=== PATIENT | female | born 1960 | race American Indian/Alaskan Native ===

== ENCOUNTER 2021-01-23 08:17 | Day surgery (SDC) | payer MEDICAID ==
[2021-01-23] MEDS ORDERED: LIDOCAINE PF 100 MG/5 ML (CARDIAC SYRINGE) IV ONE (08:48)
[2021-01-23] MEDS ORDERED: propofoL 200 MG/20 ML VIAL IV ONE ×2 (08:48→10:07)
[2021-01-23] MEDS ORDERED: ONDANSETRON 4 MG/2 ML INJ ONE (08:50)
[2021-01-23] MEDS ORDERED: dexAMETHasone 20 MG/5 ML VIAL ONE (08:50)
[2021-01-23] MEDS ORDERED: fentaNYL 100 MCG/2 ML INJ ONE (08:52)
[2021-01-23] MEDS ORDERED: LACTATED RINGERS 1,000 ML ONE (09:14)
--- NOTE | 2021-01-23 09:19 | Anesthesia Day of Surgery ---
Anesthesia Day of Surgery - Day of Surgery Patient Examined: Yes Patient H&P Reviewed: Yes Patient is NPO: Yes
--- NOTE | 2021-01-23 09:23 | Anesthesia Consultation ---
Anesthesia Consult and Med Hx Date of service: 01/23/21 - Airway Anesthetic Teeth Evaluation: Good, Bridges (Upper left) ROM Head & Neck: Adequate Mental/Hyoid Distance: Adequate Mallampati Class: Class II Intubation Access Assessment: Good - Pre-Operative Health Status ASA Pre-Surgery Classification: ASA3 Proposed Anesthetic Plan: General - Pulmonary Hx Smoking: No Hx Asthma: Yes (USES INHALER WHEN NEEDED) SOB: Yes (Activity limited by knee pain) Hx Sleep Apnea: Yes (CPAP) - Cardiovascular System Hx Hypertension: Yes Hx Coronary Artery Disease: No (Pt reports negative cath [id number] and had ECHO/ECG/NST [id number]) Hx Cardia Arrhythmia: Yes (PVCs on Holter [id number]) - Central Nervous System Hx Neuromuscular Disorder: Yes (Knee arthritis) Hx Psychiatric Problems: No - Endocrine Hx Non-Insulin Dependent Diabetes: No Hx Thyroid Disease: Yes (Nodules) - Hematic Hx Anemia: Yes (TAKES IRON SUPPLEMENTS) - Other Systems Hx Alcohol Use: No Hx Substance Use: No Hx Cancer: No Hx Obesity: Yes
[2021-01-23] MEDS ORDERED: ONDANSETRON 4 MG/2 ML INJ IV PRN (09:30)
[2021-01-23] MEDS ORDERED: HYDROmorphone 1 MG/1 ML INJ IV PRN ×2 (09:30)
[2021-01-23] MEDS ORDERED: LACTATED RINGERS 1,000 ML IV SCH (09:30)
[2021-01-23] MEDS ORDERED: SUCCINYLCHOLINE CHLORIDE 200 MG/10 ML INJ MDV ONE (10:00)
[2021-01-23] MEDS ORDERED: MIDAZOLAM 2 MG/2 ML INJ IV NR (10:00)
[2021-01-23] MEDS ORDERED: CLINDAMYCIN 600 MG/50 mL 600 MG/50 ML BAG IV ONE (10:17)
[2021-01-23] MEDS ORDERED: SODIUM CHLORIDE 0.9% IRRIG SOLN 2000 ML IR ONE (10:45)
--- NOTE | 2021-01-23 10:45 | Operative Report ---
Operative Report Operative Report: Preoperative diagnosis: Dysfunctional uterine bleeding with thickened endometrial lining Postoperative diagnosis same Procedure: dilation and curettage-unable to safely perform hysteroscopy second to poor access given patient was body habitus Surgeon Dr. Tania Aguilar Assist none Anesthesia GETA Complications none IV fluids 1 L EBL minimal Urine output 200ml clear urine Drains none Specimen: Endometrial sampling sent to pathology Findings: Cervix pink no parametrial lesions no pelvic masses appreciated Procedure: Patient was counseled in preop holding area about risks benefits possible complications as well as alternatives to the procedure. Informed consent was obtained She was taken to the OR where she received excellent general endotracheal anesthesia. She was then placed in a dorsal lithotomy position. Exam under anesthesia revealed a uterus that was the midline not enlarged with no adnexal masses and smooth parametria. Patient was then prepped and draped in a sterile fashion. A timeout was verified. Patient was straight cathed with a red rubber catheter, 200 mL clear urine obtained. A speculum was placed in the vaginal vault, the cervix was noted to be pink with no lesions. A single-tooth tenaculum was placed on the anterior lip of the cervix and at this point it was noted that given patient's body habitus that passage of the hysteroscope would be unsafe. Using a Kevorkian curette, endometrial samplings were obtained and sent to pathology. At the completion of the procedure the tenaculum, and speculum were removed from the cervix and vagina respectively. EBL minimal. Patient extubated and taken to the PACU in stable condition. Patient's family notified of stable condition after completion of the procedure. No complications. All sponge needle instrument counts correct x2. Patient will follow-up in the outpatient setting in 1 week. Alyx ALMARAZ
[2021-01-23 12:15] VITALS: BP 125/67
--- NOTE | 2021-01-23 14:24 | Post Anesthesia Evaluation ---
- Post Anesthesia Evaluation Patient Participated: Yes Airway Patent: Yes Stable Respiratory Function: Yes Nausea/Vomiting: No Temp > 96.8F: Yes Pain Manageable: Yes Adequeate Hydration: Yes Anesthesia Complications: No Block Receding Appropriately: Not Applicable Patient on Ventilator: No
== END 2021-01-23 12:05 | disposition home or self-care (01) ==
LOC: OR 08:17
PROVIDERS: ATTEND Obstetrics & Gynecology
DX: N93.8 Other specified abnormal uterine and vaginal bleeding (principal); I10 Essential (primary) hypertension; J45.909 Unspecified asthma, uncomplicated; G47.30 Sleep apnea, unspecified; E78.00 Pure hypercholesterolemia, unspecified; E66.9 Obesity, unspecified; M19.90 Unspecified osteoarthritis, unspecified site; Z88.1 Allergy status to other antibiotic agents; Z88.2 Allergy status to sulfonamides; Z88.8 Allergy status to other drugs, medicaments and biological substances; Z79.899 Other long term (current) drug therapy; Z98.890 Other specified postprocedural states
CPT/HCPCS: 58120; 88305; A4217; J0330; J1100; J2001; J2250; J2405; J2704; J3010; J7120